=== PATIENT | male | born 1950 | race Caucasian/White ===

== ENCOUNTER → 2024-10-17 06:41 | Outpatient (REF) | payer MEDICARE, OTHER, SELFPAY | LOC: PAVMRI 06:41 | PROVIDERS: ATTENDING PHYSICIAN Physician Assistant; FAMILY PHYSICIAN Internal Medicine | DX: M54.16 Radiculopathy, lumbar region (principal) | CPT/HCPCS: 72148 ==

== ENCOUNTER → 2024-12-10 14:49 | Outpatient (REF) | payer MEDICARE, OTHER, SELFPAY | LOC: HWRAD 14:49 | PROVIDERS: ATTENDING PHYSICIAN Internal Medicine | DX: N28.1 Cyst of kidney, acquired (principal) | CPT/HCPCS: 76775 ==

== ENCOUNTER → 2025-01-25 06:35 | Outpatient (REF) | payer MEDICARE, OTHER, SELFPAY | LOC: PAVMRI 06:35 | PROVIDERS: ATTENDING PHYSICIAN Specialist; FAMILY PHYSICIAN Internal Medicine | DX: G93.41 Metabolic encephalopathy (principal) | CPT/HCPCS: 70551 ==

== ENCOUNTER → 2025-02-03 10:28 | Outpatient (REF) | payer MEDICARE, OTHER, SELFPAY | LOC: PAVMRI 10:28 | PROVIDERS: ATTENDING PHYSICIAN Internal Medicine | DX: N28.1 Cyst of kidney, acquired (principal) | CPT/HCPCS: 74183; A9575 ==

== ENCOUNTER 2025-08-16 01:25 | Emergency (ER) | payer MEDICARE, OTHER, SELFPAY ==
[2025-08-16 01:40] VITALS: BP 148/88
[2025-08-16 02:43] LABS: Urine Character Clear (Clear)
[2025-08-16 02:57] LABS: Urine White Cell 0-2 /HPF (0-5)
[2025-08-16 03:47] VITALS: BP 148/80
[2025-08-16 04:06] VITALS: BMI 25.7
[2025-08-16 05:00] VITALS: BP 155/75
[2025-08-16 06:00] VITALS: BP 124/72
[2025-08-16 06:07] LABS: ALT (SGPT) 21 U/L (0-50); AST (SGOT) 24 U/L (17-59); Albumin 4.1 g/dl (3.5-5.0); Alkaline Phosphatase 56 U/L (38-126); Blood Urea Nitrogen 30 mg/dl (9-20); Calcium 9.0 mg/dl (8.4-10.2); Carbon Dioxide 27 mmol/L (22-30); Chloride 107 mmol/L (98-107); Estimated Creatinine Clearance 60 ml/min; Glucose 111 mg/dl (70-99); Potassium 4.6 mmol/L (3.5-5.1); Sodium 137 mmol/L (135-145); Total Protein 6.6 g/dl (6.3-8.2); eGFR > 60.00
[2025-08-16 06:14] LABS: Hematocrit 39.8 % (39.0-52.0); Hemoglobin 13.3 g/dL (13.0-18.0); Mean Corp Hgb Conc. 33.4 g/dL (33.0-37.0); Mean Corpuscular Volume 87.3 fL (80.0-94.0); Nucleated Red Blood Cells % 0 % (-); Platelet Count 138 10^3/uL (130-400); Red Cell Dist. Width 12.7 % (11.5-14.5)
[2025-08-16 07:20] VITALS: BP 148/79
--- NOTE | 2025-08-16 07:33 | ED.GENMED ---
History of Present Illness
General
Chief Complaint: Fall
Source: patient and spouse
Exam Limitations: none
Time Seen by Provider: 08/16/25 03:34
History of Present Illness
History of Present Illness:
Note:
CHIEF COMPLAINT(S)
Fall resulting in rib and back pain.
HISTORY OF PRESENT ILLNESS
The patient is a 74-year-old male who presented with pain in the ribs and right side of the back following a fall. The patient reported the incident occurred while he was attempting to use the bathroom in the dark and misjudged the toilet seat,
resulting in a fall onto the toilet which impacted his back. The patient noted receiving both influenza and COVID-19 vaccinations the previous day. He is experiencing considerable pain at the site of impact.
PAST MEDICAL AND SURGICAL HISTORY
The patient recently started taking meloxicam. He was advised not to take ibuprofen or naproxen.
PHYSICAL EXAM
General: Alert, no acute distress.
Skin: Warm, dry.
Head: Normocephalic, atraumatic.
Neck: Supple, trachea midline.
Eye, Ears, Nose, Mouth, and Throat: Oral mucosa moist.
Cardiovascular: Normal peripheral perfusion, No edema.
Respiratory: Respirations are non-labored.
Gastrointestinal: Abdomen nondistended
Back: Tenderness observed upon palpation.
Musculoskeletal: Pain at the ribs and back; no obvious deformities noted.
Neurological: Alert and oriented to person, place, time, and situation, No focal neurological deficit observed.
Psychiatric: Cooperative, appropriate mood & affect.
PLAN
Order a computed tomography scan of the abdomen to evaluate for potential injury due to the fall.
DIFFERENTIAL DIAGNOSIS
The Differential Diagnosis includes, in no particular order and is not limited to:
1. Rib fracture
2. Pulmonary contusion
3. Hemothorax
4. Pneumothorax
5. Splenic laceration
6. Kidney contusion
7. Vertebral fracture
8. Internal abdominal injury
9. Muscular strain
10. Soft tissue contusion
Disposition:
SUMMARY OF ENCOUNTER
A 74-year-old male presented with a contusion to his right flank after a fall. He was attempting to use the bathroom, missed the toilet, and landed between the toilet and the wall. There is some bruising at the site of impact. A CT scan was
performed and returned negative for any acute injury related to the fall. Incidentally, renal cysts were noted on his CT scan, and he is due for a follow-up MRI, which was last conducted in January. His is aware of the need to schedule this
outpatient MRI.
DISPOSITION
Patient is to be discharged home in improved condition.
PLAN
The patient will continue to take his pain medications as previously directed. He is to follow up with his outpatient MRI for renal cysts as discussed.
INDEPENDENT REVIEW OF LABS AND INTERPRETATION OF TESTS
My independent interpretation of the CT scan indicates no acute injury from the fall and the incidental finding of renal cysts, which require follow-up.
PATIENT EDUCATION AND COUNSELING
The patient and his were informed about the importance of scheduling the follow-up MRI for the renal cysts.
FOLLOW-UP INSTRUCTIONS
Please schedule a follow-up MRI for the evaluation of renal cysts as soon as possible.
MEDICATION RECONCILIATION
The patient is instructed to continue his previously directed pain medications.
MEDICAL DECISION MAKING
- Complexity of Data Reviewed: Chronic conditions affecting care include the incidental finding of renal cysts which require monitoring.
DDx list includes: Rib fracture, Pulmonary contusion, Hemothorax, Pneumothorax, Splenic laceration, Kidney contusion, Vertebral fracture, Internal abdominal injury, Muscular strain, and Soft tissue contusion.
- Data:
Category 1
My independent interpretation of the CT scan confirms no acute injury, with the incidental finding of renal cysts.
- Risk:
Prescription medication was prescribed for pain management, as previously directed to the patient.
DIAGNOSIS
1. Contusion of right flank (S20.221A)
2. Renal cysts, incidental finding (N28.1)
Past History
Past History
ED Past Medical History: CAD, Hypercholesterolemia, [place], Psychiatric (Anxiety) and Other (Irritable bowel)
ED Past Surgical History: Cardiac (Cardiac catheterization with one stent), Tonsilectomy and Other (Eye surgery, fissurectomy, vasectomy)
Social History
Tobacco: Non-smoker
Alcohol: None
Drug: None
Personal:
Living: with family
Employment: Employed
Family History
Family History: Negative Diabetes, Hypertension or CAD
Phy Exam
Physical Exam
Physical Exam:
.
Course
Orders/Labs/Results
Orders:
Orders
08/16/25 02:33
Urinalysis Reflex To Culture Urgent
Date Specimen was Collected: 08/16/25
Time Specimen was Collected: 02:21
Urine Microscopic Reflex Cult Urgent
08/16/25 04:01
CT Abd/pelvis W Iv Cont Urgent
Comment:
Reason For Exam: r flank pain, trauma, hematuria
08/16/25 05:40
Complete Blood Count/With Diff Urgent
Comprehensive Metabolic Panel Urgent
Abnormal Lab Results
08/16/25 08/16/25
02:33 05:40
RBC 4.56 L 10^6/uL
(4.70-6.10)
MPV 10.9 H fL
(7.4-10.4)
Absolute Neuts (auto) 8.7 H 10^3/uL
(1.4-6.5)
Absolute Lymphs (auto) 0.4 L 10^3/uL
(1.2-3.4)
Neutrophils % 89.8 H %
(42.2-75.2)
Lymphocytes % 3.8 L %
(20.5-51.1)
BUN 30 H mg/dl
(9-20)
Glucose 111 H mg/dl
(70-99)
Ur Occult Blood Reflex 1+ A
(Negative)
Urine RBC 3-6 A /HPF
(0-2)
Urine Bacteria (Reflex) Few A
(Negative)
Urine Albumin (Reflex) 1+ A
(Neg - Trace)
08/16/25 05:40
08/16/25 05:40
Vital Signs
Initial and Last Documented VS:
Initial Vital Signs
Temp Pulse Resp BP Pulse Ox
99.8 F 85 20 148/88 97
08/16/25 01:40 08/16/25 01:40 08/16/25 01:40 08/16/25 01:40 08/16/25 01:40
Last Documented Vital Signs
Temp Pulse Resp BP Pulse Ox
99.8 F 96 15 124/72 97
08/16/25 01:40 08/16/25 06:15 08/16/25 05:15 08/16/25 06:00 08/16/25 04:15
*Pulse Oximetry
SaO2: 97
Oxygen Mode of Delivery: Room air
Patient hypoxic: no
*Critical Care Note
Total Time (30-74mins, 75-104mins- exclusive of procedures): Not Applicable
ED Attending Note
-
Portions of this chart may have been created with voice recognition software.� Occasional wrong word or��sound alike� substitutions may have occurred due to the inherent limitations of voice recognition software.
Discharge Plan
Departure
Patient Disposition: Home (Routine Discharge)
Date of Disposition: 08/16/25
Time of Disposition: 07:35
Patient with high blood pressure during this ER visit?: Yes
Discharge Problem:
Contusion, Fall, Renal cyst
Instructions: Contusion (DC), Skin Abrasions (DC), Preventing falls in adults
Prescriptions:
No Action
calcium polycarbophil [Fiber-Tabs] 625 MG tablet
625 mg PO BID
atorvastatin 40 MG tablet
40 mg PO QPM
aspirin 81 MG tablet,delayed release (DR/EC)
81 mg PO DAILY
meloxicam 15 MG tablet
15 mg PO DAILY
Rx Instructions:
for one month from 07/28/25-08/27/25
L.acidoph,paracasei,B.animalis 1 EACH capsule
1 ea PO DAILY
cyanocobalamin (vitamin B-12) [Vitamin B-12] 1,000 mcg Tablet
1,000 mcg PO DAILY
Referrals:
Tho Teague MD [Family Provider, Internal Medicine]
Activity Restrictions/Additional Instructions:
As discussed, please follow-up with your 6-month interval outpatient MRI to evaluate your renal cysts.
Thank You for choosing [facility].
It was a pleasure meeting you and taking part in your care. We hope for your continued healing and wellness.
Please read discharge instructions in their entirety. However, they are for general education and may not describe your exact diagnosis at discharge. Information on your ER visit and medical conditions were discussed with you along with appropriate
follow up information...
If indicated, please take your medications as instructed and indicated on discharge paperwork.
Please schedule a follow up appointment as directed. Call to schedule an appointment
Please return to the emergency department with ANY change in, persisting, or worsening of symptoms. If any of your symptoms do not improve, or persist, or become more severe within 6-12 hours, please return to the emergency department for further
care.
Please return to the emergency department if you develop a headache, neck pain/stiffness, fever greater than 100.4F, chest pain, shortness of breath, persistent nausea, vomiting, slurred speech, difficulty walking, numbness/tingling, weakness, signs
of infection or any other symptoms that are worrisome to you.
If you have any questions or concerns please do not hesitate to call the Hospital at .
Interventions
Interventions:
*Risk Screen - Suicide Last Done: 08/16/25 01:40
*General Assessment Last Done: 08/16/25 01:40
*Neglect/Abuse Screening Last Done: 08/16/25 01:40
*ED- Fall Risk Assessment Last Done: 08/16/25 01:40
*ED COVID-19 Vaccine History Last Done: 08/16/25 01:40
*ED Influenza Vaccine History Last Done: 08/16/25 01:40
ED-Musculoskeletal Assessment Last Done: 08/16/25 04:06
ED- Neurological Assessment Last Done: 08/16/25 04:06
ED-Skin Assessment Last Done: 08/16/25 04:06
Discharge Date and Time
Print Language: [id number]
== END 2025-08-16 07:47 | disposition home or self-care (01) ==
LOC: EMR 01:25
PROVIDERS: EMERGENCY PHYSICIAN Student in an Organized Health Care Education/Training Program; FAMILY PHYSICIAN Internal Medicine
DX: S30.13XA Contusion of flank (latus) region, initial encounter (principal); N28.1 Cyst of kidney, acquired; W19.XXXA Unspecified fall, initial encounter; E78.00 Pure hypercholesterolemia, unspecified; I25.10 Atherosclerotic heart disease of native coronary artery without angina pectoris; K58.9 Irritable bowel syndrome, unspecified; Z95.5 Presence of coronary angioplasty implant and graft
CPT/HCPCS: 99284; 74177; 80053; 81003; 81015; 85025; Q9967

== ENCOUNTER 2025-10-13 06:42 | Outpatient (RCR) | payer SELFPAY | END 2025-10-13 13:20 | disposition home or self-care (01) | LOC: ROT 06:42 | PROVIDERS: ATTENDING PHYSICIAN Specialist; FAMILY PHYSICIAN Internal Medicine | DX: Z02.4 Encounter for examination for driving license (principal) ==

== ENCOUNTER → 2025-10-21 12:07 | Outpatient (REF) | payer OTHER, MEDICARE, SELFPAY | LOC: PAVMRI 12:07 | PROVIDERS: ATTENDING PHYSICIAN Internal Medicine | DX: N28.1 Cyst of kidney, acquired (principal) | CPT/HCPCS: 74183; A9575 ==